=== PATIENT | female | born 1985 ===

== ENCOUNTER 2017-08-18 13:31 | Inpatient (IN) | payer OTHER ==
[2017-08-18] MEDS ORDERED: LIDOCAINE 1% 300 MG/30 ML SDV SC PRN (16:00)
[2017-08-18] MEDS ORDERED: EPSOM SALT 454 GM TP PRN (16:00)
[2017-08-18] MEDS ORDERED: MISOPROSTOL 200 MCG TAB PO PRN (16:00)
[2017-08-18] MEDS ORDERED: LR 1,000 ML IV PRN (16:00)
[2017-08-18] MEDS ORDERED: OLIVE OIL 118 ML BTL MISC PRN (16:00)
[2017-08-18] MEDS ORDERED: IBUPROFEN 600 MG TAB PO PRN (16:00)
[2017-08-18] MEDS ORDERED: AMMONIA AROMATIC 1 EACH AMP IH PRN (16:00)
[2017-08-18] MEDS ORDERED: TERBUTALINE SULFATE 1 MG/ML VIAL IV PRN (16:00)
--- NOTE | 2017-08-18 16:13 | PDGENHP ---
History and Physical History and Physical: CARE: [facility] - consistent care starting first trimester HPI: Patient is a 31 yo G 1 P 0 at that presents to L&D as a transfer from the [facility] after having persistent elevated BPs this AM while being evaluated for labor. She started having contractions yesterday afternoon which persisted throughout the night. She arrived at the birthing center early this am and was 1/80/-3. Shortly after her arrival at 0600 she had a BP of 140/90, at 1100 she had a BP 150/100. Her cervix remained 1 cm. At that time they did PIH labs and made the decision to transfer care here to [facility]. When she arrived she was quang q 3-4 minutes and uncomfortable. Her cervix was still 1/80/ -2. She denies LOF, VB. Baby has been active. Denies h/a, visual changes, epigastric pain or increased edema. Has not had a history of elevated BPs during her course. EDC: 08/12/17 which is based on LMP: 11/05/2016 which is known and consistent with Ultrasound at 8 weeks. Her is complicated by: 1. GBS positive Review of Systems: Constitutional: Denies any fever, chills, or fatigue HEENT: denies any visual changes, difficulty swallowing, hearing loss Cardiovascular: Denies any chest pain, palpitations, leg swelling Respiratory: denies any cough, wheezing, or shortness of breathe GI: Denies any nausea, vomiting, diarrhea, constipation : denies any dysuria, urgency, frequency, vaginal bleeding Musculoskeletal: denies any muscle or bone pain Skin: denies any rashes Neuro: denies any headache, seizures, lightheadedness, dizziness, or loss of consciousness Psychiatric: denies any depression, anxiety, or SI/HI thoughts HISTORY: Previous OB history: none Past medical history: non contributory Past surgical history: none Medications: PNV Allergies (list reaction): NKDA LABS: Rh: O pos ABS: Neg Rubella: Immune HbsAg: NR HIV: NR VDRL: NR 1hr: 87 GC: Neg Chlamydia: Neg Pap: Normal GBS: pos PHYSICAL EXAM: Constitutional: WN, A&Ox3 HEENT: normocephalic atraumatic, supple Heart: RRR, no murmur Chest: CTA-B Abdomen: Soft, nontender, gravid SVE: 80/-3 Extremities: small pedal edema, negative lennie's sign Neuro: grossly normal Psych: normal affect assessment: Reassuring FHTs, baseline 120 +accels, no decels, moderate variability Contractions: toco q 3-4 mild/mod Assessment: 1) 31 yo G 1 P 0 with IUP@40.6 weeks 2) Early latent phase labor 3) GBS pos 4) Cat 1 FHR tracing 5) Meets criteria for gestational hypertension, PIH labs pending Plan: 1) Admit to L&D 2) PIH labs 3) Monitor BPs closely 4) Continuous EFM 5) IV LR hydration 6) GBS prophylaxis with Vancomycin IV per protocol 7) pain control as desired 8) Plan pitocin augmentation 9) Will AROM and place IUPC when able Plan reviewed with Dr Bernadine Domínguez
[2017-08-18] MEDS ORDERED: LR 500 ML IV PRN (18:57)
[2017-08-18] MEDS ORDERED: OXYTOCIN/RINGERS LACTATE 500 ML IV SCH (19:00)
[2017-08-18] MEDS: VANCOMYCIN HCL/NORMAL SALINE 250 ML IV SCH (20:41)
[2017-08-18] MEDS ORDERED: NALOXONE HCL 0.4 MG/ML INJ IVP PRN (21:18)
[2017-08-18] MEDS ORDERED: ONDANSETRON 4 MG/2 ML VIAL IVP PRN (21:18)
[2017-08-18] MEDS ORDERED: PHENYLEPHRINE HCL 100 MCG/ML SYR IVP PRN (21:18)
[2017-08-18] MEDS ORDERED: LR 500 ML IV SCH (21:30)
[2017-08-18] MEDS ORDERED: fentaNYL 200 MCG, BUPIVACAINE 0.5% 20 ML in NS 100 ML EP SCH (21:30)
[2017-08-18] MEDS ORDERED: fentaNYL 2MCG/ML/BUP 0.1% RTU 100 ML EP SCH (21:30)
[2017-08-18] MEDS ORDERED: PHENYLEPHRINE HCL 100 MCG/ML SYR ONE (21:33)
[2017-08-18] MEDS ORDERED: BUPIVACAINE 0.25% 30 ML SDV ONE (21:33)
[2017-08-18] MEDS ORDERED: fentaNYL 100 MCG/2 ML INJ ONE (21:34)
--- NOTE | 2017-08-18 21:45 | OBPROG ---
Labor Progress Note Assessment/Plan: Assessment: 31 y/o at 40.6 weeks ega latent phase labor Gestational hypertension Pitocin discontinued at this time SVE 70/-2 Patient requesting epidural Plan: Anesthesia notified Will plan to AROM and place IUPC when comfortable 08/18/17 22:46 08/18/17 22:58 08/18/17 23:07 Subjective/Intrapartum Course: Struggling to tolerate contractions. Using nitrous without relief. Requesting epidural. 08/18/17 23:04 Objective: Patient ABO/Rh O POSITIVE 08/18/17 16:35 BPs 130-140/80-90s afebrile Contx q 1-3 EFM cat 2 - had 4 min decel to 80-90s. pitocin discontinued due to uterine hyperstimulation FHT baseline returned to baseline 120s. - SVE Dilation (cm): 3 Effacement (%): 80 Station: -2 - Contraction Pattern Assessment Current Contraction Pattern: Regular - Physical Exam General Appearance: WD/WN, moderate distress Skin: normal color, warm/dry Oxytocin Orders Assessment - Pre-Induction/Augmentation Assessment Gestational Age: 40 week(s) and 6 day(s) ICD10 Worksheet Patient Problems: Problems Problem Status Onset Prolonged first stage of labor, antepartum Acute
[2017-08-18] MEDS ORDERED: CLINDAMYCIN 900 MG/DEXTROSE 50 ML IV SCH (22:00)
--- NOTE | 2017-08-18 22:32 | PREANESOB ---
Obstetric Pre-Anesthesia Info - General Info Proposed Procedure: labor : 1 Para: 0 JOHN: 08/12/17 Gestational Age: 40 week(s) and 6 day(s) - Info Monitors: External - Labor Status Cervical Dilation per last OB SVE: 3 Station per last OB SVE: -2 Pitocin: In Use Indications for Labor Analgesia: Augmentation of Labor, BP Control, Pain Control , Possible Labor Epidural: Proposed Anesthesia ROS: hypertension with labor but PIH labs normal, cephalexin is not an allergy but rather a sensitivity--it causes nausea, pcn caused a rash, the patient is currently very uncomfortable with contractions and is using N2O, otherwise ROS is negative Allergies/Adverse Reactions: Allergy/AdvReac Type Severity Reaction Status Date / Time cephalexin [From Keflex] Allergy Verified 08/18/17 14:29 Penicillins Allergy Verified 08/18/17 14:29 Home Medications: Medication Instructions Recorded Magnesium Oxide [Magnesium] 500 mg PO 08/18/17 Vit27&Calcium/Iron/FA 08/18/17 [] Visit Medications: Generic Name Dose Route Start Last Admin Trade Name Freq PRN Reason Stop Dose Admin Ammonia (Aromatic Spirit) 1 each 08/18/17 16:00 Ammonia Aromatic IH 08/28/17 15:59 ONCE PRN Fainting Diphenhydramine HCl 25 - 50 mg 08/18/17 21:18 Benadryl Injection IVP 02/14/18 21:17 Q6HRS PRN Itching Ephedrine Sulfate 10 mg 08/18/17 21:18 Ephedrine Sulfate IV 02/14/18 21:17 .Q2M PRN Hypotension Lactated Ringer's 1,000 mls @ 0 mls/hr 08/18/17 16:00 Lr IV 08/19/17 15:59 PRN PRN SEE PROTOCOL CONDITIONS Protocol Per Protocol Lactated Ringer's 500 mls @ 500 mls/hr 08/18/17 18:57 Lr IV 08/19/17 18:57 PRN PRN Maternal Hypotension Oxytocin/Lactated Ringer's 500 mls @ 0 mls/hr 08/18/17 19:00 Pitocin 30 Units/Lr (Premix) IV 02/14/18 18:59 CONT DENNIS Protocol Per Protocol Vancomycin/Sodium Chloride 250 mls @ 250 mls/hr 08/18/17 19:30 08/18/17 20:41 Vancomycin 1 Gm (Premix) IV 09/17/17 19:29 250 mls Q12H DENNIS Administration Protocol Lactated Ringer's 500 mls @ 0 mls/hr 08/18/17 21:30 Lr IV 02/14/18 21:29 CONT DENNIS As Directed Fentanyl 200 mcg/ Bupivacaine 100 mls @ 0 mls/hr 08/18/17 21:30 HCl 20 ml/ Sodium Chloride EP 08/28/17 21:29 CONT DENNIS Protocol As Directed Ibuprofen 600 mg 08/18/17 16:00 Motrin PO ONCE PRN post , pain Lidocaine HCl 300 mg 08/18/17 16:00 Lidocaine Hcl 1% SC 02/14/18 15:59 ONCE PRN episiotomy Magnesium Sulfate 454 gm 08/18/17 16:00 Epsom Salt TP 02/14/18 15:59 Q1H PRN perineal discomfort Misoprostol 800 - 1,000 mcg 08/18/17 16:00 Cytotec PO 02/14/18 15:59 ONCE PRN Vaginal Atony/Bleeding Naloxone HCl 0.4 mg 08/18/17 21:18 Narcan IVP 02/14/18 21:17 PRN PRN Respiratory depression [place] Oil 118 ml 08/18/17 16:00 Sweet Oil MISC 02/14/18 15:59 ONCE PRN perineal massage Ondansetron HCl 4 mg 08/18/17 21:18 Zofran IVP 08/19/17 21:17 Q4HRS PRN Nausea/Vomiting, Can't Take PO Phenylephrine HCl 100 mcg 08/18/17 21:18 Neosynephrine IVP 02/14/18 21:17 .Q2M PRN Hypotension Terbutaline Sulfate 0.25 mg 08/18/17 16:00 Brethine IV 02/14/18 15:59 ONCE PRN Tachysystole Discontinued Medications Generic Name Dose Route Start Last Admin Trade Name Freq PRN Reason Stop Dose Admin Bupivacaine HCl Confirm 08/18/17 21:33 Sensorcaine 0.25% Sdv Administered 08/18/17 21:34 Dose 30 ml .ROUTE .STK-MED ONE Fentanyl Confirm 08/18/17 21:34 Sublimaze Administered 08/18/17 21:35 Dose 100 mcg .ROUTE .STK-MED ONE Clindamycin Phosphate/Dextrose 50 mls @ 100 mls/hr 08/18/17 22:00 Cleocin 900 Mg (Premix) IV 09/17/17 21:59 Q8HRS [facility] Protocol Phenylephrine HCl Confirm 08/18/17 21:33 Neosynephrine Administered 08/18/17 21:34 Dose 1,000 mcg .ROUTE .STK-MED ONE - Anesthesia History Response to Local Anesthetics: Normal Anesthesia & Operative History: Other (Specify) (only previous anesthesia was local for dentistry--no adverse rxn) Family Anesthesia History: Negative - Social History Substance Use/Abuse: Denies - Vital Signs Height/Weight (Nursing): Height 172.72 cm Weight 89.358 kg - Focused Exam Neck exam: FROM Mallampati Score: Class 2 Mouth exam: normal dental/mouth exam Pulmonary: no respiratory distress Cardiovascular: regular rate and rhythym Labs: Patient ABO/Rh O POSITIVE 08/18/17 16:35 - Plan Anesthetic Plan: shannan Consent Signed and on Chart: Yes Patient/Guardian Understands and Agrees to Plan: Yes Urgent/Emergent Case: Becky pappas completed preop but documented later for safe timely pt care
--- NOTE | 2017-08-18 22:44 | OBPROG ---
Labor Progress Note Assessment/Plan: Assessment: Plan: Subjective/Intrapartum Course: 08/18/17 22:41 patient comfortable with epidural. she is exhausted and a little overwhelmed and disappointed but doing ok. discussed that Shanique the CNM asked me to assess her pelvis. SVE /-2. head intact. tight introitus. AROM. moderate amount of clear fluid noted. IUPC placed. discussed plan of pitocin augmentation and allowing patient to rest. will reposition and recheck patient several hours later. will check sooner if indicated. multiple questions answered,. Objective: Patient ABO/Rh O POSITIVE 08/18/17 16:35 - SVE Dilation (cm): 3 Effacement (%): 75 Station: -2 Membranes: AROM Amniotic Fluid Color: Clear - Contraction Pattern Assessment Current Contraction Pattern: Regular - FHR Assessment Zaldivar FHR Pattern Variability: Moderate FHR Category: 1 - Procedures Non-surgical Procedures: Amniotomy, IUPC Oxytocin Orders Assessment - Pre-Induction/Augmentation Assessment Gestational Age: 40 week(s) and 6 day(s)
[2017-08-19] MEDS ORDERED: LIDOCAINE 1% 300 MG/30 ML SDV ONE (00:28)
[2017-08-19] MEDS ORDERED: MISOPROSTOL 200 MCG TAB ONE (00:29)
[2017-08-19] MEDS ORDERED: OLIVE OIL 118 ML BTL ONE (00:29)
[2017-08-19] MEDS ORDERED: OXYTOCIN 10 UNIT/ML VIAL ONE (00:29)
[2017-08-19] MEDS ORDERED: TERBUTALINE SULFATE 1 MG/ML VIAL ONE (00:29)
--- NOTE | 2017-08-19 03:38 | OBPROG ---
Labor Progress Note Assessment/Plan: Assessment: 31 y/o at 40.6 weeks ega latent phase labor Gestational hypertension- Bps last 4 hours 120s-130s/80s Pitocin at 4 mu MVUs have been 170+ since 0230 SVE 4/80/-1 EFM Category 2 after recent decel, but overall reassuring. Comfortable with epidural Plan: Continue pitocin Recheck at 0600 Reviewed POC with patient and 08/18/17 22:46 08/18/17 22:58 08/18/17 23:07 08/19/17 03:31 08/19/17 03:43 Subjective/Intrapartum Course: Resting comfortably with epidural. 08/18/17 23:04 08/19/17 03:38 Objective: Patient ABO/Rh O POSITIVE 08/18/17 16:35 FHT baseline 130s, 2-3 minute decel to 90s when on back for exam and uterine hyperstimulation. Resolved when repositioned to left side. Overall EFM reassuring with mod varibility and frequent accels. MVUs 170s-200s since 0230 Pitocin 4 mu Bps 120-130s/80s last 4 hours afebrile - SVE Dilation (cm): 4 Effacement (%): 80 Station: -1 Membranes: AROM Amniotic Fluid Color: Clear - Contraction Pattern Assessment Current Contraction Pattern: Regular - Procedures Non-surgical Procedures: Amniotomy, IUPC Oxytocin Orders Assessment - Pre-Induction/Augmentation Assessment Gestational Age: 40 week(s) and 6 day(s) ICD10 Worksheet Patient Problems: Problems Problem Status Onset Prolonged first stage of labor, antepartum Acute
--- NOTE | 2017-08-19 06:59 | OBPROG ---
Labor Progress Note Assessment/Plan: Assessment: 31 y/o at 40.6 weeks ega-active labor with pitocin augmentation Gestational hypertension - BPs currently 110s-120s/80s comfortable with epidural Pitocin at 3 mu MVUs avg 140s currently - dysfunctional pattern at times SVE 80/-1 EFM currently Cat 1 Plan: Makind cervical change - continue pitocin and titrate for adequate labor Report to Anthony Varela MD Reviewed POC with patient and Anticipate 08/18/17 22:46 08/18/17 22:58 08/18/17 23:07 08/19/17 03:31 08/19/17 03:43 08/19/17 06:39 Subjective/Intrapartum Course: Resting comfortably with epidural. 08/18/17 23:04 08/19/17 03:38 Objective: Patient ABO/Rh O POSITIVE 08/18/17 16:35 - SVE Dilation (cm): 6 Effacement (%): 80 Station: -1 Membranes: AROM Amniotic Fluid Color: Clear - Contraction Pattern Assessment Current Contraction Pattern: Regular - Procedures Non-surgical Procedures: Amniotomy, IUPC Oxytocin Orders Assessment - Pre-Induction/Augmentation Assessment Gestational Age: 40 week(s) and 6 day(s) ICD10 Worksheet Patient Problems: Problems Problem Status Onset Prolonged first stage of labor, antepartum Acute
[2017-08-19] MEDS: VANCOMYCIN HCL/NORMAL SALINE 250 ML IV SCH ×2 (08:36→22:11)
--- NOTE | 2017-08-19 14:19 | OBPROG ---
Labor Progress Note Assessment/Plan: Assessment: IUP at 41 wks failed center hypertension - improved after CARLENE - asymptomatic slow progress with labor +GBS on vanc Plan: cont progress on pit, cont vanc 08/19/17 14:15 Subjective/Intrapartum Course: Resting comfortably with epidural. 08/18/17 23:04 08/19/17 03:38 08/19/17 14:17 doing well, comf with CARLENE - occas feels more pressure and has pushed button on bolus. happy with progress and feels very supported Objective: Patient ABO/Rh O POSITIVE 08/18/17 16:35 - SVE Dilation (cm): 9 Effacement (%): 100 Station: +1 Membranes: AROM Amniotic Fluid Color: Clear, Meconium Stained (possibly) - Contraction Pattern Assessment Current Contraction Pattern: Regular (very hard to achieve adeq pattern, on pit 15 mu/min) - FHR Assessment Zaldivar FHR (bpm): 130 FHR Pattern Variability: Moderate FHR Category: 2 (occas variables with position change, good recovery) - Procedures Non-surgical Procedures: Amniotomy, IUPC Oxytocin Orders Assessment - Pre-Induction/Augmentation Assessment Gestational Age: 40 week(s) and 6 day(s) ICD10 Worksheet Patient Problems: Problems Problem Status Onset GBS carrier Acute Prolonged first stage of labor, antepartum Acute - ICD10 Problem Qualifiers (1) GBS carrier
--- NOTE | 2017-08-19 16:21 | OBPROG ---
Labor Progress Note Assessment/Plan: Assessment: IUP at 41 wks failed center hypertension - improved after CARLENE - asymptomatic slow progress with labor - complete now and pushing +GBS on vanc Plan: cont progress on pit, cont vanc 08/19/17 14:15 08/19/17 16:19 Subjective/Intrapartum Course: Resting comfortably with epidural. 08/18/17 23:04 08/19/17 03:38 08/19/17 14:17 doing well, comf with CARLENE - occas feels more pressure and has pushed button on bolus. happy with progress and feels very supported 08/19/17 16:19 pt feeling pressure and coordinating pushing well. changing position to help with variable lates - good variability Objective: Patient ABO/Rh O POSITIVE 08/18/17 16:35 - SVE Dilation (cm): 10 Effacement (%): 100 Station: +1 Membranes: AROM Amniotic Fluid Color: Clear, Meconium Stained (possibly) Dilation Complete Date: 08/19/17 Dilation Complete Time: 15:34 - Contraction Pattern Assessment Current Contraction Pattern: Regular (very hard to achieve adeq pattern, on pit 15 mu/min) - FHR Assessment Zaldivar FHR (bpm): 140 FHR Pattern Variability: Moderate FHR Category: 2 (variable lates - GBTBV) - Procedures Non-surgical Procedures: Amniotomy, IUPC Oxytocin Orders Assessment - Pre-Induction/Augmentation Assessment Gestational Age: 40 week(s) and 6 day(s) ICD10 Worksheet Patient Problems: Problems Problem Status Onset GBS carrier Acute Prolonged first stage of labor, antepartum Acute - ICD10 Problem Qualifiers (1) GBS carrier
[2017-08-19] MEDS ORDERED: DOCUSATE SODIUM 100 MG CAP PO PRN (19:51)
--- NOTE | 2017-08-19 19:57 | OBDEL ---
Info Type: Vaginal Presentation at Delivery: Vertex L&D Analgesia/Anesthesia Type: Epidural GBS+: Yes Antibiotic Used for + GBS: Vancomycin Intrapartum Medications: Generic Name Dose Route Start Last Admin Trade Name Gerard PRN Reason Stop Dose Admin Vancomycin/Sodium Chloride 250 mls @ 250 mls/hr 08/18/17 19:30 08/19/17 08:36 Vancomycin 1 Gm (Premix) IV 09/17/17 19:29 250 mls Q12H DENNIS Administration Protocol Fentanyl 200 mcg/ Bupivacaine 100 mls @ 0 mls/hr 08/18/17 21:30 08/19/17 05: 15 HCl 20 ml/ Sodium Chloride EP 08/28/17 21:29 100 mls CONT DENNIS Administration Protocol As Directed - Infant Care Provider Greens Planter/ELECTRICAL INTERN: Yani Dominique - Hospital Course Intrapartum: Resting comfortably with epidural. 08/18/17 23:04 08/19/17 03:38 08/19/17 14:17 doing well, comf with CARLENE - occas feels more pressure and has pushed button on bolus. happy with progress and feels very supported 08/19/17 16:19 pt feeling pressure and coordinating pushing well. changing position to help with variable lates - good variability Vaginal Delivery - Delivery Provider Delivery Physician/CNM: Rebecca Varela - Labor and Delivery Onset of Contractions Date: 08/18/17 Onset of Contractions Time: 10:00 Onset of Contractions Type: Augmented Rupture of Membranes Date: 08/18/17 Rupture of Membranes Time: 22:22 Rupture of Membranes Type: Artificial Amniotic Fluid Color: Clear, Meconium Stained (possibly) Dilation Complete Date: 08/19/17 Dilation Complete Time: 15:34 Placenta Delivery Date: 08/19/17 Placenta Delivery Time: 19:12 Total Hours of Labor: 33 Non-surgical Procedures: Amniotomy, IUPC Laceration: 2nd Degree Repair: 3-0, Vicryl Vaginal Sponge Count Correct: Yes Vaginal Needle Count Correct: Yes Vaginal Sweep Performed: Yes EBL: 350 Delivery Comment: maternal exhaustion after 3 1/2 hrs pushing, requested VAVD - Medications Labor Augmentation/Induction Methods Used: Pitocin Labor Augmentation/Induction Indication: Contraction Strength Inadequate, Post Dates, Other (Specify) (PIH) Assissted Delivery Assisted Delivery Type: Vacuum Station: +3 Pop offs (Total): 1 Pulls (Total): 3 [place] Data JOHN: 08/12/17 Gestational Age: 41 week(s) and 0 day(s) Zaldivar Delivery Date: 08/19/17 Delivery Time: 19:02 Sex of Infant: Female Score (1 Min): 8 Score (5 Min): 9 ICD10 Worksheet Patient Problems: Problems Problem Status Onset Status post vacuum-assisted vaginal delivery Acute - ICD10 Problem Qualifiers (1) GBS carrier
[2017-08-19] MEDS: IBUPROFEN 600 MG TAB PO PRN (20:16)
[2017-08-20] MEDS: IBUPROFEN 600 MG TAB PO PRN ×4 (03:05→21:30)
--- NOTE | 2017-08-20 06:36 | POSTANESTH ---
Post Anesthetic Evaluation Cardiovascular Status: Normal, Stable Respiratory Status: Normal, Stable Level of Consciousness/Mental Status: Can Participate in Eval Pain Control: Adequate, Prn Tx Ordered Nausea/Vomiting Control: Adequate, Prn Tx Ordered Complications Possibly Related to Anesthesia: None Noted
--- NOTE | 2017-08-20 15:43 | OBPP ---
Progress Note Assessment/Plan: Assessment: [id number] s/p VAVD anemia Plan: routine PP Care cont start PO iron anticipate d/c tomorrow 08/20/17 15:45 Subjective/ Course: 08/20/17 15:43 Pt doing well, denies any pain. She reports min bleeding. She is . She is voiding and ambulating without difficulty. FOB @ BS, supportive Objective: 08/20/17 05:40 Patient ABO/Rh O POSITIVE 08/18/17 16:35 Temp Pulse Resp BP Pulse Ox 36.7 C 93 16 126/82 H 96 08/20/17 15:17 08/20/17 15:17 08/20/17 15:17 08/20/17 15:17 08/19/17 21:30 Uterine Position/Fundal Height: Umbilicus -1, Midline Uterine Tone: Firm Physical Exam - Physical Exam General Appearance: WD/WN, alert, no apparent distress Neck: supple Abdomen: non-tender, soft Skin: normal color, warm/dry Neuro/Psych: alert, normal mood/affect, oriented x 3
[2017-08-21] MEDS: IBUPROFEN 600 MG TAB PO PRN ×2 (04:19→10:33)
[2017-08-21 09:36] VITALS: BP 130/89
--- NOTE | 2017-08-21 10:52 | OBPP ---
Progress Note Assessment/Plan: Assessment: 31 y/o PPD #2 s/p vacuum assisted vaginal delivery augmentation of labor with Gestational HTN. Plan: Some elevated BP today, but not in severe range. Will D.c home to monitor sx's and BP @ home and return to [facility] next week for a BP check. Rx Iron and Ibuprofen. 08/21/17 10:52 Subjective/ Course: 08/20/17 15:43 Pt doing well, denies any pain. She reports min bleeding. She is . She is voiding and ambulating without difficulty. FOB @ BS, supportive 08/21/17 10:32 Pt is doing well this am. She has good perineal pain control with Ibuprofen. She has min lochia and is ambulating, voiding and had a nml BM today. She denies VILLALTA, scotomata, blurred vision and is ready to d/c home. Objective: 08/20/17 05:40 Patient ABO/Rh O POSITIVE 08/18/17 16:35 Temp Pulse Resp BP Pulse Ox 36.6 C 66 18 130/89 H 96 08/21/17 07:52 08/21/17 09:36 08/21/17 07:52 08/21/17 09:36 08/21/17 07:52 Uterine Position/Fundal Height: Umbilicus -2 Uterine Tone: Firm Physical Exam - Physical Exam General Appearance: WD/WN, alert, no apparent distress Neck: non-tender, full range of motion, supple Respiratory: chest non-tender, lungs clear, normal breath sounds Cardiac/Chest: regular rate, rhythm Abdomen: normal bowel sounds Extremities: swelling (2+), Larissa's sign (neg)
--- NOTE | 2017-08-21 10:54 | OBGCSDC ---
General Delivery Information - General Info : 1 Para: 1 Abortions: 0 Type: Vaginal L&D Analgesia/Anesthesia Type: Epidural Admission Date: 08/18/17 Labs: Patient ABO/Rh O POSITIVE 08/18/17 16:35 Hct 33.8 % (38.0-47.0) L 08/20/17 05:40 - Hospital Course Intrapartum: Resting comfortably with epidural. 08/18/17 23:04 08/19/17 03:38 08/19/17 14:17 doing well, comf with CARLENE - occas feels more pressure and has pushed button on bolus. happy with progress and feels very supported 08/19/17 16:19 pt feeling pressure and coordinating pushing well. changing position to help with variable lates - good variability : 08/20/17 15:43 Pt doing well, denies any pain. She reports min bleeding. She is . She is voiding and ambulating without difficulty. FOB @ BS, supportive 08/21/17 10:32 Pt is doing well this am. She has good perineal pain control with Ibuprofen. She has min lochia and is ambulating, voiding and had a nml BM today. She denies VILLALTA, scotomata, blurred vision and is ready to d/c home. Vaginal - Delivery Provider Delivery Physician/CNM: Rebecca Varela - Diagnosis Labor: Augmented Rupture of Membranes Type: Artificial Amniotic Fluid Color: Clear, Meconium Stained (possibly) Laceration: 2nd Degree Repair: 3-0, Vicryl - Procedures Assisted Delivery Type: Vacuum Non-surgical Procedures: Amniotomy, IUPC - Delivery Non-surgical Procedures: Amniotomy, IUPC EBL: 350 [place] Data JOHN: 08/12/17 Gestational Age: 41 week(s) and 2 day(s) Zaldivar Delivery Date: 08/19/17 Delivery Time: 19:02 Sex of Infant: Female Weight (gm): 3584 g Score (1 Min): 8 Score (5 Min): 9 Discharge Information - Discharge Information Prescriptions: Ibuprofen [Motrin (*)] 600 mg PO Q6HRS PRN #30 tab PRN Reason: Pain, Mild Condition: Good Instruction/Follow Up: One Week
== END 2017-08-21 14:45 | disposition home or self-care (01) | DRG 775 ==
LOC: FLD 13:31 → FOB 08-19 21:09
PROVIDERS: ADMIT Advanced Practice Midwife; ATTEND Obstetrics & Gynecology
PROC: 10907ZC Drainage of Amniotic Fluid, Therapeutic from Products of Conception, Via Natural or Artificial Opening (ICD-10-PCS; principal; 2017-08-18)
PROC: 0KQM0ZZ Repair Perineum Muscle, Open Approach (ICD-10-PCS; principal; 2017-08-18)
PROC: 10H073Z Insertion of Monitoring Electrode into Products of Conception, Via Natural or Artificial Opening (ICD-10-PCS; principal; 2017-08-18)
PROC: 10D07Z6 Extraction of Products of Conception, Vacuum, Via Natural or Artificial Opening (ICD-10-PCS; principal; 2017-08-18)
DX: O13.4 Gestational [pregnancy-induced] hypertension without significant proteinuria, complicating childbirth (principal); O48.0 Post-term pregnancy; O70.1 Second degree perineal laceration during delivery; O77.0 Labor and delivery complicated by meconium in amniotic fluid; O99.820 Streptococcus B carrier state complicating pregnancy; O90.81 Anemia of the puerperium; Z37.0 Single live birth; Z3A.41 41 weeks gestation of pregnancy
CPT/HCPCS: J2370; J2590; J3010; J3105; J3370